=== PATIENT | female | born 1995 | race Caucasian/White ===

== ENCOUNTER 2017-09-15 12:55 | Outpatient (CLI) | payer MEDICAID ==
[2017-09-15 13:47] LABS: ADD UMIC NO; UR ASCORBIC ACID NEGATIVE (NEGATIVE); UR BILIRUBIN (Dip) NEGATIVE (NEGATIVE); UR BLOOD (Dip) NEGATIVE (NEGATIVE); UR CLARITY CLEAR (CLEAR); UR COLOR COLORLESS (YELLOW); UR GLUCOSE (Dip) NEGATIVE (NEGATIVE); UR KETONES (Dip) NEGATIVE (NEGATIVE); UR LEUKOCYTE ESTERASE (Dip) NEGATIVE Leu/ul (NEGATIVE); UR NITRITE (Dip) NEGATIVE (NEGATIVE); UR SPECIFIC GRAVITY (Dip) 1.001 (1.003-1.030); UR TOTAL PROTEIN (Dip) NEGATIVE (NEGATIVE); UR UROBILINOGEN (Dip) NEGATIVE (NEGATIVE)
[2017-09-15] MEDS: LACTATED RINGER'S 1,000 ML IV (14:12)
== END 2017-09-15 16:02 | disposition home or self-care (01) ==
LOC: OBT 12:55 → L-D 12:55 → OBT 16:02
DX: O62.9 Abnormality of forces of labor, unspecified (principal); Z3A.33 33 weeks gestation of pregnancy
CPT/HCPCS: 76817; 76818; 81003; 82731; 82962; 96360; 96361

== ENCOUNTER 2017-10-08 13:22 | Outpatient (CLI) | payer MEDICAID ==
[2017-10-08 13:53] LABS: ADD MAN DIFF? NO
[2017-10-08 13:56] LABS: EOSINOPHILS % 0.1 % (0.0-7.0); HEMATOCRIT 34.8 % (37.0-47.0); HEMOGLOBIN 11.8 g/dl (12.0-16.0); LYMPHOCYTES # 1.3 10^3/ul (0.8-2.9); LYMPHOCYTES % 14.7 % (18.0-55.0); MEAN CORPUSCULAR HEMOGLOBIN 30.9 pg (29.0-33.0); MEAN CORPUSCULAR HGB CONC 33.9 g/dl (32.0-37.0); MEAN CORPUSCULAR VOLUME 91.1 fl (72.0-104.0); MEAN PLATELET VOLUME 10.2 fl (7.4-10.4); MONOCYTE # 0.3 10^3/ul (0.3-0.9); MONOCYTES % 3.3 % (0.0-13.0); NEUTROPHILS % 81.7 % (30.0-74.0); PLATELET COUNT 178 10^3/UL (140-415); RED BLOOD COUNT 3.82 10^6/ul (4.20-5.40); RED CELL DISTRIBUTION WIDTH 13.1 % (11.5-14.5)
[2017-10-08 13:56] LABS: WHITE BLOOD COUNT 8.6 10^3/ul (4.8-10.8)
[2017-10-08 14:14] LABS: ALANINE AMINOTRANSFERASE 16 IU/L (13-69); ALBUMIN 3.3 g/dl (3.3-4.9); ALBUMIN/GLOBULIN RATIO 1.06; ALKALINE PHOSPHATASE 121 IU/L (42-121); ANION GAP 13 (8-16); ASPARTATE AMINO TRANSFERASE 20 IU/L (15-46); BILIRUBIN,INDIRECT 0.2 mg/dl (0-1.1); BILIRUBIN,TOTAL 0.2 mg/dl (0.2-1.3); BLOOD UREA NITROGEN 5 mg/dl (7-20); CARBON DIOXIDE 20 mmol/L (21-31); CHLORIDE 107 mmol/L (97-110); CREATININE 0.39 mg/dl (0.44-1.00); GLUCOSE 142 mg/dl (70-220); POTASSIUM 3.6 mmol/L (3.5-5.1); SODIUM 136 mmol/L (135-144); TOTAL PROTEIN 6.4 g/dl (6.1-8.1); URIC ACID 4.1 mg/dl (3.1-7.9)
[2017-10-08 14:19] LABS: INR 0.96; PROTIME 12.9 Sec (11.9-14.9)
[2017-10-08 14:20] LABS: PARTIAL THROMBOPLASTIN TIME 28.1 Sec (25.0-35.0)
[2017-10-08 15:19] LABS: ADD UMIC YES; UR ASCORBIC ACID NEGATIVE (NEGATIVE); UR BACTERIA FEW /HPF (NONE SEEN); UR BILIRUBIN (Dip) NEGATIVE (NEGATIVE); UR BLOOD (Dip) NEGATIVE (NEGATIVE); UR CLARITY CLEAR (CLEAR); UR COLOR YELLOW (YELLOW); UR GLUCOSE (Dip) NEGATIVE (NEGATIVE); UR KETONES (Dip) TRACE mg/dL (NEGATIVE); UR LEUKOCYTE ESTERASE (Dip) TRACE Leu/ul (NEGATIVE); UR MUCUS FEW /HPF (NONE SEEN); UR NITRITE (Dip) NEGATIVE (NEGATIVE); UR RBC 3 /HPF (0-5); UR SPECIFIC GRAVITY (Dip) 1.013 (1.003-1.030); UR SQUAMOUS EPITHELIAL CELL FEW /HPF (FEW); UR TOTAL PROTEIN (Dip) NEGATIVE (NEGATIVE); UR UROBILINOGEN (Dip) NEGATIVE (NEGATIVE); UR WBC 5 /HPF (0-5)
== END 2017-10-08 16:00 | disposition home or self-care (01) ==
LOC: OBT 13:22 → L-D 13:22 → OBT 16:00
DX: O36.8130 Decreased fetal movements, third trimester, not applicable or unspecified (principal); O24.410 Gestational diabetes mellitus in pregnancy, diet controlled; Z3A.36 36 weeks gestation of pregnancy
CPT/HCPCS: 76818; 80053; 81001; 84560; 85025; 85384; 85610; 85730

== ENCOUNTER 2017-10-08 23:50 | Outpatient (CLI) | payer MEDICAID | END 2017-10-09 01:25 | disposition home or self-care (01) | LOC: OBT 23:50 → L-D 23:50 → OBT 10-09 01:25 | DX: O62.9 Abnormality of forces of labor, unspecified (principal); Z3A.36 36 weeks gestation of pregnancy | CPT/HCPCS: Z7500 ==

== ENCOUNTER 2017-10-27 02:25 | Outpatient (CLI) | payer MEDICAID ==
[2017-10-27 04:05] LABS: ADD UMIC NO; UR ASCORBIC ACID NEGATIVE (NEGATIVE); UR BACTERIA FEW /HPF (NONE SEEN); UR BILIRUBIN (Dip) NEGATIVE (NEGATIVE); UR BLOOD (Dip) NEGATIVE (NEGATIVE); UR CLARITY SLIGHTLY CLOUDY (CLEAR); UR COLOR YELLOW (YELLOW); UR GLUCOSE (Dip) NEGATIVE (NEGATIVE); UR KETONES (Dip) NEGATIVE (NEGATIVE); UR LEUKOCYTE ESTERASE (Dip) NEGATIVE Leu/ul (NEGATIVE); UR MUCUS FEW /HPF (NONE SEEN); UR NITRITE (Dip) NEGATIVE (NEGATIVE); UR RBC 1 /HPF (0-5); UR SPECIFIC GRAVITY (Dip) 1.012 (1.003-1.030); UR SQUAMOUS EPITHELIAL CELL FEW /HPF (FEW); UR TOTAL PROTEIN (Dip) NEGATIVE (NEGATIVE); UR UROBILINOGEN (Dip) NEGATIVE (NEGATIVE); UR WBC 1 /HPF (0-5)
[2017-10-27 04:19] LABS: RUPTURE FETAL MEMBRANES NEGATIVE (NEGATIVE)
== END 2017-10-27 06:04 | disposition home or self-care (01) ==
LOC: OBT 02:25 → L-D 02:25 → OBT 06:04
DX: O47.1 False labor at or after 37 completed weeks of gestation (principal); Z3A.39 39 weeks gestation of pregnancy
CPT/HCPCS: 76818; 81001; 81003; 84112

== ENCOUNTER 2017-10-30 14:09 | Outpatient (CLI) | payer MEDICAID | END 2017-10-30 18:50 | disposition home or self-care (01) | LOC: OBT 14:09 → L-D 14:09 → OBT 18:50 | DX: O62.9 Abnormality of forces of labor, unspecified (principal); Z3A.39 39 weeks gestation of pregnancy | CPT/HCPCS: 76815; 76818 ==

== ENCOUNTER 2017-11-03 15:38 | Inpatient (IN) | payer MEDICAID ==
[2017-11-03] MEDS ORDERED: CARBOPROST 250 MCG INJ IM (17:30)
[2017-11-03] MEDS ORDERED: ACETAMINOPHEN/CODEINE #3 TAB PO (17:30)
[2017-11-03] MEDS ORDERED: IBUPROFEN 600 MG TAB PO (17:30)
[2017-11-03] MEDS ORDERED: LIDOCAINE 1% (MPF) 30 ML INJ INJ (17:30)
[2017-11-03 17:50] LABS: ADD MAN DIFF? NO
[2017-11-03 17:52] LABS: BASOPHILS % 0.1 % (0.0-2.0); EOSINOPHILS % 0.2 % (0.0-7.0); HEMATOCRIT 36.8 % (37.0-47.0); HEMOGLOBIN 12.3 g/dl (12.0-16.0); LYMPHOCYTES # 1.7 10^3/ul (0.8-2.9); LYMPHOCYTES % 19.4 % (18.0-55.0); MEAN CORPUSCULAR HEMOGLOBIN 30.8 pg (29.0-33.0); MEAN CORPUSCULAR HGB CONC 33.4 g/dl (32.0-37.0); MEAN CORPUSCULAR VOLUME 92.2 fl (72.0-104.0); MEAN PLATELET VOLUME 10.5 fl (7.4-10.4); MONOCYTE # 0.5 10^3/ul (0.3-0.9); MONOCYTES % 5.8 % (0.0-13.0); NEUTROPHIL # 6.6 10^3/ul (1.6-7.5); NEUTROPHILS % 74.1 % (30.0-74.0); PLATELET COUNT 174 10^3/UL (140-415); RED BLOOD COUNT 3.99 10^6/ul (4.20-5.40); RED CELL DISTRIBUTION WIDTH 13.3 % (11.5-14.5)
[2017-11-03 17:52] LABS: WHITE BLOOD COUNT 8.9 10^3/ul (4.8-10.8)
[2017-11-03 18:11] LABS: INR 0.89; PROTIME 12.1 Sec (11.9-14.9); PT RATIO 0.9
[2017-11-03 18:12] LABS: PARTIAL THROMBOPLASTIN TIME 27.6 Sec (25.0-35.0)
[2017-11-03 18:12] LABS: GLUCOSE 148 mg/dl (70-220)
[2017-11-03 18:52] LABS: HEPATITIS B SURFACE ANTIGEN NEGATIVE (NEGATIVE)
[2017-11-03] MEDS: LACTATED RINGER'S 1,000 ML IV* (19:19)
[2017-11-04] MEDS: LACTATED RINGER'S 1,000 ML IV* ×2 (02:02→14:46)
[2017-11-04] MEDS: BUTORPHANOL 2 MG INJ IV (05:44)
[2017-11-04] MEDS: OXYTOCIN 30 UNITS/LR 500 ML IV (14:43)
[2017-11-04 16:19] LABS: RAPID PLASMA REAGIN NONREACTIVE (NR)
[2017-11-04] MEDS: DEXTROSE 5%-LR 1,000 ML IV ×2 (17:04→21:04)
[2017-11-05] MEDS: DEXTROSE 5%-LR 1,000 ML IV ×3 (01:04→18:14)
[2017-11-05] MEDS: LACTATED RINGER'S 1,000 ML IV* ×4 (03:06→15:04)
[2017-11-05] MEDS ORDERED: NALOXONE (0.4 MG/ML) INJ IV (12:00)
[2017-11-05] MEDS ORDERED: ONDANSETRON 4 MG INJ IV (12:00)
[2017-11-05] MEDS ORDERED: DIPHENHYDRAMINE 50 MG INJ IV (12:00)
[2017-11-05] MEDS: FENTAnyl 2MCG/ML-ROPIV 0.2% 100 ML BAG EPI ×2 (12:27→18:19)
[2017-11-05] MEDS ORDERED: LIDOCAINE 1.5%/EPI MPF (SDV) 30 ML VIAL (14:01)
[2017-11-05] MEDS: METHYLERGONOVINE 0.2 MG INJ IM (23:17)
[2017-11-05] MEDS: OXYTOCIN 30 UNITS/LR 500 ML IV ×2 (23:21→23:24)
[2017-11-05] MEDS: MISOPROSTOL 200 MCG TAB PR (23:23)
[2017-11-06] MEDS ORDERED: ONDANSETRON 4 MG INJ IV (02:00)
[2017-11-06] MEDS ORDERED: OXYCODONE/ASPIRIN (4.88/325) TAB PO ×2 (02:00)
[2017-11-06] MEDS ORDERED: DIBUCAINE 1% 30 GM OINT PR (02:00)
[2017-11-06] MEDS ORDERED: ACETAMINOPHEN 325 MG TAB PO (02:00)
[2017-11-06] MEDS ORDERED: HYDROCODONE/APAP (5/325) TAB PO ×2 (02:00)
[2017-11-06] MEDS: LANOLIN 7 GM TUBE TOP (05:14)
[2017-11-06] MEDS: IBUPROFEN 600 MG TAB PO ×4 (05:14→23:27)
[2017-11-06] MEDS: BENZOCAINE 20% 56 ML SPRAY TOP (05:15)
[2017-11-06] MEDS: WITCH HAZEL/GLYCERIN PAD PR (05:16)
[2017-11-06] MEDS: OXYTOCIN 30 UNITS/LR 500 ML IV (05:19)
[2017-11-06 09:21] LABS: ADD MAN DIFF? NO
[2017-11-06 09:24] LABS: WHITE BLOOD COUNT 16.8 10^3/ul (4.8-10.8)
[2017-11-06 09:24] LABS: BASOPHILS % 0.2 % (0.0-2.0); EOSINOPHILS % 0.1 % (0.0-7.0); HEMATOCRIT 33.2 % (37.0-47.0); HEMOGLOBIN 11.1 g/dl (12.0-16.0); LYMPHOCYTES # 1.3 10^3/ul (0.8-2.9); LYMPHOCYTES % 7.6 % (18.0-55.0); MEAN CORPUSCULAR HEMOGLOBIN 31.3 pg (29.0-33.0); MEAN CORPUSCULAR HGB CONC 33.4 g/dl (32.0-37.0); MEAN CORPUSCULAR VOLUME 93.5 fl (72.0-104.0); MEAN PLATELET VOLUME 10.7 fl (7.4-10.4); MONOCYTE # 0.8 10^3/ul (0.3-0.9); NEUTROPHIL # 14.6 10^3/ul (1.6-7.5); NEUTROPHILS % 86.7 % (30.0-74.0); PLATELET COUNT 141 10^3/UL (140-415); RED BLOOD COUNT 3.55 10^6/ul (4.20-5.40); RED CELL DISTRIBUTION WIDTH 13.2 % (11.5-14.5)
[2017-11-06] MEDS: SENNA/DOCUSATE NA (8.6MG/50MG) TAB PO ×2 (09:32→21:08)
[2017-11-06 12:39] LABS: ADD UMIC YES; UR ASCORBIC ACID NEGATIVE (NEGATIVE); UR BACTERIA FEW /HPF (NONE SEEN); UR BILIRUBIN (Dip) NEGATIVE (NEGATIVE); UR BLOOD (Dip) 3+ mg/dL (NEGATIVE); UR CLARITY CLEAR (CLEAR); UR COLOR YELLOW (YELLOW); UR GLUCOSE (Dip) NEGATIVE (NEGATIVE); UR KETONES (Dip) NEGATIVE (NEGATIVE); UR LEUKOCYTE ESTERASE (Dip) 1+ Leu/ul (NEGATIVE); UR MUCUS FEW /HPF (NONE SEEN); UR NITRITE (Dip) NEGATIVE (NEGATIVE); UR NONSQUAMOUS EPITHELIAL CELL 1 /HPF (NONE SEEN); UR RBC > 182 /HPF (0-5); UR SPECIFIC GRAVITY (Dip) 1.012 (1.003-1.030); UR TOTAL PROTEIN (Dip) 1+ mg/dl (NEGATIVE); UR UROBILINOGEN (Dip) 1+ mg/dL (NEGATIVE); UR WBC 34 /HPF (0-5)
[2017-11-07] MEDS: IBUPROFEN 600 MG TAB PO ×2 (05:32→11:39)
[2017-11-07] MEDS: MEASLES,MUMPS,RUBELLA VACCINE INJ SC* (09:00)
[2017-11-07] MEDS: SENNA/DOCUSATE NA (8.6MG/50MG) TAB PO (11:39)
== END 2017-11-07 13:15 | disposition home or self-care (01) | DRG 775 ==
LOC: OBT 15:38 → L-D 11-04 11:09 → PP1 11-06 01:45 → L-D 15:39 → OBT 16:15 → L-D 16:15
PROVIDERS: Obstetrics & Gynecology
PROC: 10E0XZZ Delivery of Products of Conception, External Approach (ICD-10-PCS; principal; 2017-11-05)
PROC: 0HQ9XZZ Repair Perineum Skin, External Approach (ICD-10-PCS; 2017-11-05)
DX: O24.420 Gestational diabetes mellitus in childbirth, diet controlled (principal); O70.0 First degree perineal laceration during delivery; Z3A.40 40 weeks gestation of pregnancy; Z37.0 Single live birth
CPT/HCPCS: 62319; 81001; 82947; 82962; 85025; 85610; 85730; 86592; 86850; 86900; 86901; 87340